=== PATIENT | female | born 1955 | race Caucasian/White ===

== ENCOUNTER 2019-11-28 21:52 | Inpatient (IN) | payer OTHER, SELFPAY ==
[2019-11-28 22:22] VITALS: PULSE 79; RESP 16; TEMP 36.2; O2SAT 98; BMI 21.1
--- NOTE | 2019-11-28 22:27 | DI.CT.S_ITS ---
PROCEDURE: CT HEAD/BRAIN WO CON INDICATIONS: Severe headaches, dizziness and altered mental status TECHNIQUE: Noncontrast 4.5 mm thick angled axial sections acquired from the foramen magnum to the vertex, with coronal and sagittal reformats. For radiation dose reduction, the following was used: automated exposure control, adjustment of mA and/or kV according to patient size. COMPARISON: None. FINDINGS: Image quality: Excellent. CSF spaces: Basal cisterns are patent. No extra-axial fluid collections. The ventricles are symmetric in size and shape. Brain: There are multiple intracranial masses bilaterally concerning for metastatic disease. The largest masses in the right central brain measuring 2.5 x 3.2 cm. A 1.6 and meter mass is seen in the right frontal lobe. There are a couple of masses in the left frontal lobe and a mass in the left parietal lobe. In addition, there is a mass in the left cerebellum. Hypertense appearance of the masses may represent intratumoral calcification or bleed. There is associated vasogenic edema with mass effect and no midline shift. There is cerebral volume loss for age, with resultant ventricular and sulcal prominence. There are periventricular and deep white matter chronic small vessel ischemic changes. There is intracranial internal carotid artery atherosclerosis. Skull and face: Calvarium and visualized facial bones appear intact, without suspicious lesions. Sinuses: Visualized sinuses and mastoids are clear. IMPRESSION: Multiple intracranial masses are present emonstrating associated vasogenic edema involving both cerebral hemispheres as well as the left cerebellum, highly suspicious for intracranial metastases. There is mass effect but no midline shift. No significant discrepancy with the fast food shift lead radiology preliminary report. Dictated by: Gerda Wiley M.D. on 11/29/2019 at 7:57 Approved by: Gerda Wiley M.D. on 11/29/2019 at 8:06
--- NOTE | 2019-11-28 22:27 | DI.RAD.S_ITS ---
PROCEDURE: XR CHEST 1V INDICATIONS: altered mental status TECHNIQUE: One view of the chest was acquired. COMPARISON: None. FINDINGS: Surgical changes and devices: None. Lungs and pleura: There is hyperinflation of the lungs are mild flattening of the hemidiaphragms suggestive of COPD. No focal consolidation. There is mild interstitial prominence. No pleural effusions or pneumothorax. Mediastinum: Mediastinal contours appear normal. Heart size is normal. Bones and chest wall: No suspicious bony lesions. Overlying soft tissues appear unremarkable. IMPRESSION: 1. Findings suggestive of COPD. 2. Mild interstitial prominence which may reflect mild interstitial edema or chronic changes. No acute consolidation. Dictated by: Lester Cook M.D. on 11/29/2019 at 9:24 Approved by: Lester Cook M.D. on 11/29/2019 at 9:26
--- NOTE | 2019-11-28 22:38 | DI.CT.S_ITS ---
PROCEDURE: CT CERVICAL SPINE WO CON INDICATIONS: Headache. Neck pain. Left hand weakness. TECHNIQUE: Noncontrast 3 mm thick sections acquired from the skull base to the T4 level. Sagittal and coronal reformats were then constructed. For radiation dose reduction, the following was used: automated exposure control, adjustment of mA and/or kV according to patient size. COMPARISON: [facility], US, US BIOPSY BREAST 1ST LESION RIGHT, 07/13/2018, 13:57. [facility], CR, XR CHEST 1V, 11/28/2019, 22:38. [facility], CT, CT HEAD/BRAIN WO CON, 11/28/2019, 22:45. FINDINGS: Image quality: Excellent. Bones: No fractures or dislocations. Visualized superior ribs are intact. Prosthetic disc is noted at C3-4 with trace anterolisthesis of C3 on C4, C4 ency eyes. Moderate disc space narrowing is present C5-6 and C6-7. Soft tissues: Thyroid gland demonstrates low-attenuation prominence particularly within the left lobe. Prevertebral soft tissues are normal in thickness. No paravertebral hematomas. No apical pneumothoraces. Bilateral scattered pulmonary nodules are present within the visualized upper lobes bilaterally. The largest is identified in the right apex measuring 8 mm. In addition, there is an ill-defined partially visualized mass within the left cerebellum. IMPRESSION: 1. No visualized fracture. 2. Multiple pulmonary nodules identified within the lung apices. In addition, partially visualized left cerebellar mass is present. Constellation of findings are highly concerning for neoplasm, given recent pathology report of adenocarcinoma of the right breast mass. It is noted MR brain is currently scheduled. CT chest and further imaging evaluation is recommended. 3. Low-attenuation thyroid lobe focus as above. This could represent adenoma or cyst. However, other etiologies cannot be excluded. Thyroid ultrasound is recommended for further evaluation. Dictated by: Caryn Morton M.D. on 11/29/2019 at 8:33 Approved by: Caryn Morton M.D. on 11/29/2019 at 8:38
--- NOTE | 2019-11-28 22:39 | ED_ITS ---
HPI - Neuro Symptoms/Deficit General Chief Complaint: Neuro Symptoms/Deficit Stated Complaint: migraines, vomiting, neuro symptoms Time Seen by Provider: 11/28/19 22:37 Source: patient Mode of arrival: Family Vehicle Limitations: no limitations History of Present Illness HPI Narrative: The patient has been experiencing global headaches for about 4 weeks. She has no prior history of migraines. She has had no URI symptoms, fever, chills or other evidence of illness. With the headache she has been vomiting almost daily. She is apparently having issues with focusing/orientation. She is somewhat a bit when she is walking according to her friends. The patient is oriented, she is a reasonably good historian. She also describes intermittent issues with motion left hand, particularly function of the thumb and index finger. She has a prior history of breast cancer with bilateral mastectomy and chemotherapy approximately 1.5 year ago. Lymph nodes were negative, there was no radiation. She also has a prior history of C-spine surgery. She has no lower extremity numbness or weakness. She has no inconti nence. On Anticoagulants: No Related Data Home Medications Medication Instructions Recorded Confirmed ibuprofen 800 mg PO Q6H PRN 11/29/19 11/29/19 zolpidem [Ambien] mg PO BEDTIME PRN 11/29/19 Allergies Allergy/AdvReac Type Severity Reaction Status Date / Time No Known Drug Allergies Allergy Verified 11/28/19 22:29 Review of Systems Constitutional Constitutional: Reports as per HPI, Denies fatigue, Denies fever(s), Reports headache(s) and Denies poor appetite Eyes Eyes: Denies change in vision Comments: Complains of scotoma ENT Ears, Nose, Mouth, and Throat: Reports headache(s) Comments: No ENT complaints. Cardiovascular Cardiovascular: Denies chest pain, Denies irregular heart rhythm, Denies li ghtheadedness, Denies palpitations, Denies dyspnea and Denies orthopnea Respiratory Respiratory: Denies cough, Denies dyspnea and Denies wheezing Gastrointestinal Gastrointestinal: Denies abdominal pain, Denies diarrhea and Denies nausea Genitourinary Comments: No incontinence Musculoskeletal Musculoskeletal: Denies back pain, Denies numbness and Denies tingling Integumentary/Breasts Skin/Breast: Denies pruritus, Denies erythema, Denies rash and Denies wounds Neurologic Neurologic: Reports headache(s), Denies numbness and Denies tingling Endocrine Endocrine: Denies fatigue and Denies palpitations Allergic/Immunologic Allergic/Immunologic: Denies wheezing Patient History Medical History (Updated 11/29/19 @ 02:16 by Yousuf Garcia MD) Breast cancer (Acute) Surgical History (Updated 11/28/19 @ 22:42 by Yousuf Garcia MD) H/O bilateral mastectomy (Acute) H/O cervical spine surgery (Acute) Social History Smoking Status: Never smoker Smoking Status: Never smoker alcohol intake frequency: holidays/special occasions only Substance Use Type: does not use Exam Initial Vital Signs Initial Vital Signs: Vital Signs Temperature 97.2 F L 11/28/19 22:22 Pulse Rate 79 11/28/19 22:22 Respiratory Rate 16 11/28/19 22:22 Pulse Oximetry 98 11/28/19 22:22 Const General: cooperative, healthy appearing and well developed Nutritional Appearance: well nourished HENMT Head: normocephalic and atraumatic Ears: external ears normal and TM's normal bilaterally Nose: external nose normal Face and sinus: sinuses nontender and face symmetric Mouth: oral mucosae normal and moist mucous membranes Teeth and gingiva: dentition normal Throat: tonsils normal and uvula midline Eyes General: appearance normal, both eyes and all related structures Eyelids: eyelids normal Conjunctivae: conjunctivae normal Sclera: sclerae normal Pupils: PERRL EOM: EOM intact bilaterally Neck Neck: normal visual inspection, trachea midline and No JVD Other: C-spine tenderness without deformity. Chest Chest: normal inspection of the chest Resp Effort & Inspection: normal respiratory effort and able to speak in complete sentences Auscultation: clear to auscultation bilaterally, no rales, no rhonchi and no wheezes Cardio Rate: regular rate Rhythm: regular rhythm Heart Sounds: S1 normal, S2 normal, no click, no gallops, no murmurs and no rubs Pulses: normal peripheral pulses GI Inspection: non-distended Palpation: soft, no hepatosplenomegaly and No guarding Auscultation: normal bowel sounds Back/Spine/Pelvis Back: No back tenderness and No CVA tenderness Skin General: no rashes or lesions noted Neuro General: alert, oriented x3, gait normal and no focal motor deficits Speech: speech normal Motor: muscle tone normal throughout Sensory Exam: no sensory deficits noted Coordination: [id number] test normal and [id number] test normal Extrem General: full ROM, no clubbing, cyanosis or edema, no pedal edema and no calf tenderness Psych Appearance: well kempt Mental Status: mental status grossly normal (Oriented x3) Attitude: cooperative Thought Content: normal Judgment: judgment good Course Course Course Narrative: CT of the head reveals multiple scattered brain parenchymal masses, most significantly a 3.8 x 2.8 x 3.2 cm left cerebellar lesion, with mass effect and mild edema. CT of the neck revealed chronic DJD changes, but also pulmonary masslike foci. Chest x-ray did not reveal gross findings. The patient's neurologic symptoms are associated with metastatic cancer. Her oncologist is Dr. Lao, in [place], [place]. I discussed the case night with his partner,Dr Cunha. Severe weather and the lack of local hospital beds prevents the potential for transfer tonight. Dr Cunha gave the guidance of given Decadron 10 mg IV every 6 hours. I discussed the case with Neurosurgery, Dr. Briceño in [place]. He agreed with Decadron. He suggested transfer to [facility] if neurosurgery. Decadron has been started. The case was discussed with the hospitalist, ANTHONY Banda. The intent would be to start on Decadron tonight, and contact Dr. Lao in the morning to involve himself in her care. She will likely need brain radiation therapy. Orders Ordered: ED Orders 11/28/19 22:27 CT head/brain wo con Stat XR chest 1V Stat EKG-12 Lead Stat 11/28/19 22:38 CT cervical spine wo con Stat 11/28/19 22:40 Complete Blood Count AUTO DIFF Stat Comprehensive Metabolic Panel Stat PT [Prothrombin Time INR] Stat 11/28/19 22:52 Urine Drug Screen, Rapid Stat 11/28/19 23:13 Urinalysis and Microscopic Stat Acetaminophen (Tylenol) 650 mg PO Q6HR PRN PRN Reason: Fever/Mild Pain (1-3) Bisacodyl (Dulcolax) 10 mg MT DAILY PRN PRN Reason: Constipation Dexamethasone (Decadron) 10 mg IV Q8H KELVIN Diphenhydramine HCl (Benadryl) 25 mg IV Q6HR PRN PRN Reason: Nausea Docusate Sodium (Colace) 100 mg PO BID PRN PRN Reason: Constipation Heparin Sodium (Porcine) (Heparin) 5,000 unit SUBCUT BID KELVIN Sodium Chloride (Normal Saline 0.9%) 1,000 mls @ 100 mls/hr IV CONT KELVIN Ibuprofen (Advil) 600 mg PO Q6HR PRN PRN Reason: Fever/Mild Pain (1-3) Ketorolac Tromethamine (Toradol) 15 mg IV Q6HR PRN PRN Reason: Pain, Moderate (4-6) Stop: 12/04/19 01:55 Metoclopramide HCl (Reglan) 10 mg IV Q8HR PRN PRN Reason: Nausea And Vomiting Morphine Sulfate (Morphine) 2 mg IV Q4HR PRN PRN Reason: Pain, Moderate (4-6) Naloxone HCl (Narcan) 0.2 mg IV Q2MIN PRN PRN Reason: Opiate Reversal Discontinued Medications Dexamethasone (Decadron) 10 mg IV NOW ONE Stop: 11/29/19 00:53 Last Admin: 11/29/19 01:00 Dose: 10 mg Documented by: JULIO Diphenhydramine HCl (Benadryl) 25 mg IV NOW ONE Stop: 11/28/19 23:48 Last Admin: 11/29/19 00:14 Dose: 25 mg Documented by: JULIO Sodium Chloride (Normal Saline 0.9%) 1,000 mls @ 1,000 mls/hr IV BOLUS ONE Stop: 11/29/19 00:47 Last Infusion: 11/29/19 01:08 Dose: 0 mls/hr Documented by: Admin: 11/28/19 23:54 Dose: 1,000 mls/hr Documented by: JULIO Ketorolac Tromethamine (Toradol) 30 mg IV NOW ONE Stop: 11/28/19 23:49 Last Admin: 11/29/19 00:14 Dose: 30 mg Documented by: JULIO Metoclopramide HCl (Reglan) 10 mg IV NOW ONE Stop: 11/28/19 23:48 Last Admin: 11/29/19 00:13 Dose: 10 mg Documented by: JULIO Vital Signs Vital signs: Vital Signs - 8 hr 11/28/19 22:22 11/29/19 00:00 Temperature 97.2 F L Pulse Rate 79 78 Respiratory Rate 16 17 Blood Pressure [Right Arm] 157/72 H Pulse Oximetry 98 98 MDM - Neuro Symptoms/Deficit Lab Data Result diagrams: 11/28/19 22:40 11/28/19 22:40 Labs: Lab Results 11/28/19 11/28/19 11/28/19 Range/Units 22:40 22:40 22:40 WBC 6.9 (4.5-11.0) X10^3/uL RBC 4.42 (4.0-5.2) X10^6/uL Hgb 13.8 (12.0-16.0) g/dL Hct 39.6 (36-46) % MCV 89.7 (80-100) fL MCH 31.3 (26-34) PG MCHC 34.9 (30-36) % RDW 12.8 (11.6-14.8) % Plt Count 173 (150-400) X10^3/uL Neut % (Auto) 70.7 (50-75) % Lymph % (Auto) 18.6 L (25-40) % [place] % (Auto) 8.0 (3-14) % Eos % (Auto) 2.0 (2-4) % Baso % (Auto) 0.7 (0-2) % Neut # (Auto) 4900 (7968-8234) /uL Lymph # (Auto) 1300 (1296-7776) /uL [place] # (Auto) 600 (0-900) /uL Eos # (Auto) 100 (0-450) /uL Baso # (Auto) 0 (0-100) /uL PT 11.4 (10.1-12.7) SECONDS INR 1.0 (0.9-1.3) Sodium 137 (137-145) mmol/L Potassium 3.6 (3.4-5.1) mmol/L Chloride 102 (98-107) mmol/L Carbon Dioxide 27 (22-32) mmol/L BUN 16 (7-17) mg/dL Creatinine 0.80 (0.52-1.04) mg/dL Estimated GFR > 60.0 (>60) mL/min BUN/Creatinine Ratio 20.0 (6-22) Glucose 107 (80-110) mg/dL Calcium 9.7 (8.4-10.2) mg/dL Total Bilirubin 0.4 (0.2-1.3) mg/dL AST 40 H (14-36) IU/L ALT 24 (<35) IU/L Alkaline Phosphatase 93 (38-126) U/L Total Protein 7.1 (6.3-8.2) g/dL Albumin 4.3 (3.5-5.0) g/dL Globulin 2.8 (1.7-4.1) g/dL Albumin/Globulin Ratio 1.5 (1.0-2.8) Urine Color Urine Appearance Urine pH (4.5-8.0) Ur Specific [place] (1.000-1.035) Urine Protein (Negative) Urine Glucose (UA) (Negative) g/dL Urine Ketones (NEGATIVE) Urine Occult Blood (Negative) Urine Nitrate (Negative) Urine Bilirubin (NEGATIVE) Urine Urobilinogen (0.2) E.U./dL Ur Leukocyte Esterase (NEGATIVE) Urine RBC (0-5/HPF) Urine WBC (0-5/HPF) Ur Squamous Epith Cells (0-5/HPF) Urine Bacteria (None) Ur Culture Indicated? U Opiates 300ng/mL cut (Negative) Ur Oxycodone Screen (Negative) Urine Methadone Screen (Negative) Ur Barbiturates Screen (Negative) U Tricyclic Antidepress (Negative) Ur Phencyclidine Scrn (Negative) Ur Amphetamines Screen (Negative) U Methamphetamines Scrn (Negative) Ur MDMA Scrn (Ecstasy) (Negative) U Benzodiazepines Scrn (Negative) Urine Cocaine Screen (Negative) U Marijuana (THC) Screen (Negative) 11/28/19 11/28/19 Range/Units 22:52 23:13 WBC (4.5-11.0) X10^3/uL RBC (4.0-5.2) X10^6/uL Hgb (12.0-16.0) g/dL Hct (36-46) % MCV (80-100) fL MCH (26-34) PG MCHC (30-36) % RDW (11.6-14.8) % Plt Count (150-400) X10^3/uL Neut % (Auto) (50-75) % Lymph % (Auto) (25-40) % [place] % (Auto) (3-14) % Eos % (Auto) (2-4) % Baso % (Auto) (0-2) % Neut # (Auto) (5738-5320) /uL Lymph # (Auto) (6746-8093) /uL [place] # (Auto) (0-900) /uL Eos # (Auto) (0-450) /uL Baso # (Auto) (0-100) /uL PT (10.1-12.7) SECONDS INR (0.9-1.3) Sodium (137-145) mmol/L Potassium (3.4-5.1) mmol/L Chloride (98-107) mmol/L Carbon Dioxide (22-32) mmol/L BUN (7-17) mg/dL Creatinine (0.52-1.04) mg/dL Estimated GFR (>60) mL/min BUN/Creatinine Ratio (6-22) Glucose (80-110) mg/dL Calcium (8.4-10.2) mg/dL Total Bilirubin (0.2-1.3) mg/dL AST (14-36) IU/L ALT (<35) IU/L Alkaline Phosphatase (38-126) U/L Total Protein (6.3-8.2) g/dL Albumin (3.5-5.0) g/dL Globulin (1.7-4.1) g/dL Albumin/Globulin Ratio (1.0-2.8) Urine Color Yellow Urine Appearance Clear Urine pH 6.0 (4.5-8.0) Ur Specific [place] 1.020 (1.000-1.035) Urine Protein Negative (Negative) Urine Glucose (UA) Negative (Negative) g/dL Urine Ketones Negative (NEGATIVE) Urine Occult Blood Negative (Negative) Urine Nitrate Negative (Negative) Urine Bilirubin Negative (NEGATIVE) Urine Urobilinogen 0.2 (0.2) E.U./dL Ur Leukocyte Esterase Negative (NEGATIVE) Urine RBC 0-1/hpf (0-5/HPF) Urine WBC 0-1/hpf (0-5/HPF) Ur Squamous Epith Cells 0-1 /hpf (0-5/HPF) Urine Bacteria Occasional (0-1) (None) Ur Culture Indicated? Cult not indicated U Opiates 300ng/mL cut Negative (Negative) Ur Oxycodone Screen Negative (Negative) Urine Methadone Screen Negative (Negative) Ur Barbiturates Screen Negative (Negative) U Tricyclic Antidepress Negative (Negative) Ur Phencyclidine Scrn Negative (Negative) Ur Amphetamines Screen Negative (Negative) U Methamphetamines Scrn Negative (Negative) Ur MDMA Scrn (Ecstasy) Negative (Negative) U Benzodiazepines Scrn Negative (Negative) Urine Cocaine Screen Negative (Negative) U Marijuana (THC) Screen Negative (Negative) Imaging Data Chest x-ray: My Impression: No acute findings CT scan - head: Radiologist's Impression: Multiple scattered brain parenchymal lesions, with the dominant lesion in the left cerebellar lobe. There is midline shift and a small amount of edema. Findings are consistent with metastatic disease. CT - cervical spine: Radiologist's Impression: No fracture or dislocation. Chronic DJD changes. Prior surgery at the 3 C3-4 level. Numbness and pulmonary masslike foci consistent with metastatic disease. ECG Data Attestation: I personally reviewed and interpreted this ECG as follows: (Sinus bradycardia rate 54 beats per minute. Voltage criteria consistent with LVH. The reading is likely modified due to her history of mastectomy. No acute findings.) Critical Care Time Critical Care Time Critical Care Time: Yes Total Critical Care Time: 45 Attestation: Critical care, included initial assessment the patient, evaluation of lab, EKG and radiology data and clinical decision making. Time included discussing the clinical findings and clinical needs with the patient. Time included consultation with specialist and the hospitalist. Discharge Plan Departure Patient Disposition: Admitted as Observation Clinical Impression: Breast cancer metastasized to brain Qualifiers: Laterality: unspecified laterality Qualified Code(s): C50.919 - Malignant neoplasm of unspecified site of unspecified female breast Breast cancer metastasized to lung Qualifiers: Laterality: unspecified laterality Qualified Code(s): C50.919 - Malignant neoplasm of unspecified site of unspecified female breast Admit Date/Time: 11/29/19 01:14 Admit Provider: Martin Banda
[2019-11-28 22:55] LABS: Prothrombin Time 11.4 SECONDS (10.1-12.7)
[2019-11-28 22:56] LABS: Add Manual Diff / Slide Review NO; Basophils Absolute Auto 0 /uL (0-100); Basophils Percent Auto 0.7 % (0-2); Eosinophils Absolute Auto 100 /uL (0-450); Hematocrit 39.6 % (36-46); Hemoglobin 13.8 g/dL (12.0-16.0); Lymphocytes Absolute Auto 1300 /uL (1100-4500); Lymphocytes Percent Auto 18.6 % (25-40); Mean Corpuscular HGB Conc 34.9 % (30-36); Mean Corpuscular Hemoglobin 31.3 PG (26-34); Mean Corpuscular Volume 89.7 fL (80-100); Monocytes Absolute Auto 600 /uL (0-900); Neutrophils Absolute Auto 4900 /uL (1500-7000); Neutrophils Percent Auto 70.7 % (50-75); Platelet Count 173 X10^3/uL (150-400); Red Blood Cell Count 4.42 X10^6/uL (4.0-5.2); Red Cell Distribution Width 12.8 % (11.6-14.8); White Blood Cell Count 6.9 X10^3/uL (4.5-11.0)
[2019-11-28 22:59] LABS: Alanine Aminotransferase 24 IU/L (<35); Albumin 4.3 g/dL (3.5-5.0); Albumin Globulin Ratio 1.5 (1.0-2.8); Alkaline Phosphatase 93 U/L (38-126); Aspartate Aminotransferase 40 IU/L (14-36); Bilirubin Total 0.4 mg/dL (0.2-1.3); Blood Urea Nitrogen 16 mg/dL (7-17); Calcium 9.7 mg/dL (8.4-10.2); Carbon Dioxide 27 mmol/L (22-32); Chloride 102 mmol/L (98-107); Estimated Glomerular Filt Rate > 60.0 mL/min (>60); Globulin 2.8 g/dL (1.7-4.1); Glucose 107 mg/dL (80-110); HEMOLYSIS < 15 (0-50); Potassium 3.6 mmol/L (3.4-5.1); Sodium 137 mmol/L (137-145); Total Protein 7.1 g/dL (6.3-8.2)
[2019-11-28 23:00] LABS: UR Morphine/Opiate cutoff 300 Negative (Negative); Ur Creatinine Normal (Normal); Ur Specific Gravity Normal (Normal); Urine Amphetamines Negative (Negative); Urine Barbiturates Negative (Negative); Urine Benzodiazepines Negative (Negative); Urine Cocaine Negative (Negative); Urine MDMA Negative (Negative); Urine Methadone Negative (Negative); Urine Methamphetamines Negative (Negative); Urine Oxycodone Negative (Negative); Urine Phencyclidine Negative (Negative); Urine Tetrahydrocannabinol Negative (Negative); Urine Tricyclic Antidepressant Negative (Negative); Urine pH Normal (Normal)
[2019-11-28 23:16] LABS: Appearance Urine UA CLEAR; Bilirubin Urine UA NEGATIVE (NEGATIVE); Color Urine UA YELLOW; Glucose Urine UA NEGATIVE (Negative); Ketones Urine UA NEGATIVE (NEGATIVE); Leukocyte Esterase Urine UA NEGATIVE (NEGATIVE); Nitrite Urine UA NEGATIVE (Negative); Occult Blood Urine UA NEGATIVE (Negative); Protein Urine UA NEGATIVE (Negative); Urobilinogen Urine UA 0.2 E.U./dL (0.2)
[2019-11-28 23:20] LABS: Bacteria Urine Occasional (0-1); Culture Indicated Urine Cult Not Indicated; RBC Urine 0-1/HPF (0-5/HPF); Squamous Epithelial Cell Urine 0-1 /HPF (0-5/HPF); WBC Urine 0-1/HPF (0-5/HPF)
[2019-11-28] MEDS: SODIUM CHLORIDE 0.9% 1,000 ML 1000 ML IV (23:54)
[2019-11-29] VITALS (7 sets, daily range): BP systolic 132–162; BP diastolic 69–80; PULSE 50–78; RESP 12–18; TEMP 36.6–37.1; O2SAT 96–99; BMI 21.2
[2019-11-29] MEDS: METOCLOPRAMIDE 10 MG/2 ML INJ IV ×2 (00:13→13:49)
[2019-11-29] MEDS: diphenhydrAMINE 50 MG/ML VIAL 25 MG IV (00:14)
[2019-11-29] MEDS: KETOROLAC 60 MG/2 ML VIAL 30 MG IV (00:14)
[2019-11-29] MEDS: DEXAMETHASONE 10 MG/ML VIAL IV ×3 (01:00→16:26)
--- NOTE | 2019-11-29 01:04 | PC.NURSE ---
Drinking roberto carlos marck and eating a sandwich, ok per dr. fuentes
--- NOTE | 2019-11-29 02:02 | DI.MRI.S_ITS ---
PROCEDURE: MR HEAD/BRAIN WO/W CON INDICATIONS: Breast cancer, multiple brain lesions on CT TECHNIQUE: Noncontrast axial T1 spin echo, axial T2 fast spin echo, sagittal and axial FLAIR, coronal T2 fast spin echo, axial gradient echo, axial diffusion and ADC through the brain. After the administration of contrast, axial and coronal 3D VIBE or T1 spin echo with fat saturation through the brain. COMPARISON: [facility], CT, CT HEAD/BRAIN WO CON, 11/28/2019, 22:45. FINDINGS: Image quality: Excellent. CSF Spaces: Basal cisterns are patent. No extra-axial fluid collections. There is compression of the fourth ventricle as described below. Brain: Bilateral enhancing masses with extensive T2/FLAIR hyperintensity are identified within both cerebral and cerebellar hemispheres. There are approximately 10-12 lesions. The largest in the cerebellum is noted in the posterior left side measuring 41 mm AP by 35 mm transverse by 30 mm craniocaudal. There is mass effect upon the fourth ventricle, as well as effacement of the basal cisterns secondary to more superior cerebellar masses.. The remaining lesions, the largest is identified in the superior right temporal lobe measuring 26 mm AP by 23 mm transverse by 27 mm craniocaudal. There is no visualize superimposed hemorrhage. The brainstem appears normal. Diffusion-weighted images demonstrate no acute ischemic insults. No chronic ischemic insults. Normal intravascular flow voids are present. Skull and face: Calvarial marrow is normal in signal. Orbits appear normal. Sinuses: Sinuses and mastoids appear clear. IMPRESSION: 1. Multifocal enhancing masses within both the cerebellar and cerebral hemispheres as described above most concerning for metastatic disease. 2. As noted above, there is mass effect on the fourth ventricle as well as mild effacement of the basal cisterns secondary to vasogenic edema of superior cerebellar lesions. Dictated by: Caryn Morton M.D. on 11/29/2019 at 12:27 Approved by: Caryn Morton M.D. on 11/29/2019 at 12:35
[2019-11-29] MEDS: SODIUM CHLORIDE 0.9% 1,000 ML 100 ML IV (02:22)
--- NOTE | 2019-11-29 02:25 | PC.ADMIT ---
Addendum entered by Karen Lund R.N. 11/29/19 06:28: Patient awoke at 0620 disgruntled and called staff to her room. Requesting food and water - reminded she is NPO. Irritable, asking to leave. I'm not a prisoner here right? You can't force me to stay. Discussed options including AMA which has been advised against based on her diagnosis. She verbalized understanding and states well, I have concerns. Can I talk to Javed?. ANTHONY Maurice at bedside to discuss care. Patient stable without acute events since admission. Original Note: [email or web address] Admission Note: The patient,Maranda Bee,64 y/o, was given written information regarding hospital policies, unit procedures and contact persons. Patient's smoking status: Never smoker. Vital Signs - 8 hr 11/28/19 22:22 11/29/19 00:00 11/29/19 01:40 Temperature 97.2 F L 98.3 F Pulse Rate 79 78 64 Respiratory Rate 16 17 12 Blood Pressure 162/79 H Blood Pressure [Right Arm] 157/72 H Pulse Oximetry 98 98 99 11/29/19 01:50 Temperature 98.3 F Pulse Rate 60 Respiratory Rate 16 Blood Pressure 162/79 H Blood Pressure [Right Arm] Pulse Oximetry 99 Patient arrived from ED via stretcher. Able to ambulate to bed with 1 person assistance d/t disequilibrium, somewhat unsteady on her feet. Placed in high fall risk gear and educated on such. A/O X 3 with reported intermittent confusion, migraines, slurred speech and focal seizures to left hand. Patient admitted for new diagnosed metastatic breast cancer to lungs and brain with shift. Denies current pain, migraine improved after medication in ED. VSS, afebrile. Sp02 99% RA. Tele SB-SR 50's-60's. Skin intact as much as was visualized - she became quite agitated and irritable with the skin check and would not let staff look at her mastectomy scars nor her legs or buttocks. Denies wounds. Scattered bruising noted. She reports I am very private and at this point it is not necessary to expose myself to you when I am dying anyway. Reassurance offered, comfort provided. Mood labile, reports this is a lot to take in. Friend and emergency contact Antoinette reports patient's baseline of irritability and stubbornness is not new. Oriented to room, call light and plan of care. Verbalized understanding. Javed CRUZ at bedside upon arrival.
--- NOTE | 2019-11-29 02:30 | P.HP_ITS ---
History of Present Illness History of Present Illness Date Patient Seen: 11/29/19 Time Patient Seen: 01:30 Chief complaint: migraines, vomiting, neuro symptoms Narrative: Ms. Maranda Bee is a 64-year-old female patient with history significant for breast cancer status post bilateral mastectomy and chemotherapy 1 year ago who presents to the ER with intractable headache with nausea and vomiting. The patient is a somewhat difficult historian related to irritability an self describe difficulty concentrating. Patient reports having had persistent headache for 4 weeks and developing a disequilibrium and ataxia. More recently the patient developed nausea vomiting endorses taking ibuprofen 800 mg for headache but denies epigastric discomfort, coffee-ground emesis, hematemesis or melena. Patient also reports experiencing twitching of her left thumb as well as her left hand clenching in a fist which could not open up on multiple occasions. Within the last week she had jerking motions of her left arm. All episodes were self terminating but the patient cannot recall the duration of the events. The patient has no history of migraines for history of seizures. Her only medication she takes presently is zolpidem and ibuprofen as noted. The patient's headache is located left occipital and she has a history previous cervical spine surgery but describes this is new and different. She presently rates her headache is 5/10 aching pain. Patient reports no fevers or chills, no complaints of nasal congestion or sore throat. She has had no chest pain or palpitations, shortness of breath, cough or wheezing. She denies abdominal pain present continues nausea with multiple episodes of vomiting daily. She reports no changes in bowel habits, no hematochezia. She denies urinary frequency urgency or burning. She does provide a history of having r ight leg sciatica. Upon arrival to the ER the patient is afebrile with temperature 97.2?, heart r ate of 79, blood pressure of 157/72, respirations 16 saturating 98% on room air. Chest is trees obtained which shows no acute cardiopulmonary disease. A CT of the neck finds reversal of expected lordosis, mild to moderate degenerative disc and facet disease, mild multilevel spinal canal stenosis secondary to dorsal disc osteophyte bulging and a C3-4 disc prosthesis. Numerous intrapulmonary masslike focus of airspace disease worrisome for metastatic neoplasia, thyroid nodularity. CT of the head is obtained which shows multiple scattered intraparenchymal brain masses the single largest lesion in the left cerebellar lobe measuring 3.8 x 2.8 by 3.2 associated with regional mass effect secondary to perilesional edema, mild posterior fossa midline [id number] shift. On laboratory analysis the patient has white count of 6.9, hemoglobin of 13.8, hematocrit of 39.6 and platelets of 173. Her electrolytes are within normal limits with a BUN of 16 creatinine 0.8. Her nonfasting glucose is 107. Her total bilirubin is 0.4, AST is 40, ALT of 24 and alkaline phosphatase 93. She has a PT of 11.4 and INR 1.0. Her urinalysis is negative for infection. ER provider spoke with Dr. Lao, oncology as well as Dr. Briceño neurology regarding the patient's case. Recommendations received Decadron 10 mg IV every 4 hours. Due to inclement weather we're unable to transfer the patient to higher level of care therefore is being admitted to medicine service for metastatic breast cancer and focal seizure activity. Patient History Medical History Breast cancer (Acute) Surgical History H/O bilateral mastectomy (Acute) H/O cervical spine surgery (Acute) Family & Social History Family History Father No significant medical problems Mother Cancer Social History: Prior Living Arrangements House Safety & Behavioral: Feels Safe in Current Yes Environment Been Physically Hurt or No Threatened By a Person Suicidal Ideation Description None Suicide Plan Description No Plan Tobacco & Substance use: Smoking Status Never smoker alcohol intake frequency holiday/special occasion Substance Use Type does not use Comment: The patient lives alone in a single family home on [facility]. She reports father is 91 and in relatively good health and her mother is 87 has history of breast cancer. Smoking: The patient denies using tobacco products. Alcohol: Patient consumes alcohol occasionally. Substance use: The patient denies recreational pharmaceuticals herbal or cannabis products. Advanced directives: The patient states she does not have an advanced direct kendy. In direct discussion with the patient she states her wish to be DO NOT RESUSCITATE, DO NOT INTUBATE. She designates her friend Antoinette to be her surrogate decision maker. Meds Home Medications and Allergies Home Medications Medication Instructions Recorded Confirmed Type ibuprofen 800 mg PO Q6H PRN 11/29/19 11/29/19 History zolpidem [Ambien] mg PO BEDTIME PRN 11/29/19 History Allergies Allergy/AdvReac Type Severity Reaction Status Date / Time No Known Drug Allergies Allergy Verified 11/28/19 22:29 Review of Systems Review of Systems Narrative: All systems reviewed and found unremarkable under discussed in the HPI above. Exam Vital Signs (past 8 hours): - 11/28/19 22:22 11/29/19 00:00 11/29/19 01:40 Temperature 97.2 F L 98.3 F Pulse Rate 79 78 64 Respiratory Rate 16 17 12 Blood Pressure 162/79 H Blood Pressure [Right Arm] 157/72 H Pulse Oximetry 98 98 99 11/29/19 01:50 Temperature 98.3 F Pulse Rate 60 Respiratory Rate 16 Blood Pressure 162/79 H Blood Pressure [Right Arm] Pulse Oximetry 99 Oxygen Delivery Method Room Air Narrative Exam Narrative: GENERAL APPEARANCE: well developed, slender woman who is uncomfortable appearing but in no acute distress. HEENT: Symmetrical facies, no ptosis, PERRLA, conjunctiva clear, EOMs intact without nystagmus, no sinus tenderness to percussion, no rhinorrhea, mucous membranes are moist and pink without lesions or exudate. NECK/THYROID: neck supple, no JVD, trachea midline. LYMPH NODES: no cervical or supraclavicular lymphadenopathy. SKIN: Guadalupe Guerra, warm and dry, ecchymosis right forearm. HEART: regular rate and rhythm, S1-S2, no murmur, no rubs or gallops, brisk capillary refill, no edema LUNGS: clear to auscultation bilaterally, no coarseness crackles or wheezing, no cough present CHEST: Symmetrical movement, no accessory muscle use, good tidal volume. ABDOMEN: Soft, no distention, no abdominal tenderness, no guarding or peritoneal signs, no organomegaly, no flank tenderness, active bowel tones. 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 NEUROLOGIC: AAO x4, no facial droop or ptosis, very slight slurring of speech without aphasia, no arm or leg drift, remainder of cranial nerves are grossly intact, sensation intact to light touch, hearing grossly normal to speech. PSYCH: Patient is irritable, marginally cooperative, behaviors stable. Objective Labs Result Diagrams: 11/28/19 22:40 11/28/19 22:40 Labs: Laboratory Results - last 24 hr 11/28/19 11/28/19 11/28/19 22:40 22:40 22:40 WBC 6.9 RBC 4.42 Hgb 13.8 Hct 39.6 MCV 89.7 MCH 31.3 MCHC 34.9 RDW 12.8 Plt Count 173 Neut % (Auto) 70.7 Lymph % (Auto) 18.6 L Door % (Auto) 8.0 Eos % (Auto) 2.0 Baso % (Auto) 0.7 Neut # (Auto) 4900 Lymph # (Auto) 1300 Door # (Auto) 600 Eos # (Auto) 100 Baso # (Auto) 0 PT 11.4 INR 1.0 Sodium 137 Potassium 3.6 Chloride 102 Carbon Dioxide 27 BUN 16 Creatinine 0.80 Estimated GFR > 60.0 BUN/Creatinine Ratio 20.0 Glucose 107 Calcium 9.7 Total Bilirubin 0.4 AST 40 H ALT 24 Alkaline Phosphatase 93 Total Protein 7.1 Albumin 4.3 Globulin 2.8 Albumin/Globulin Ratio 1.5 Urine Color Urine Appearance Urine pH Ur Specific [place] Urine Protein Urine Glucose (UA) Urine Ketones Urine Occult Blood Urine Nitrate Urine Bilirubin Urine Urobilinogen Ur Leukocyte Esterase Urine RBC Urine WBC Ur Squamous Epith Cells Urine Bacteria Ur Culture Indicated? U Opiates 300ng/mL cut Ur Oxycodone Screen Urine Methadone Screen Ur Barbiturates Screen U Tricyclic Antidepress Ur Phencyclidine Scrn Ur Amphetamines Screen U Methamphetamines Scrn Ur MDMA Scrn (Ecstasy) U Benzodiazepines Scrn Urine Cocaine Screen U Marijuana (THC) Screen 11/28/19 11/28/19 22:52 23:13 WBC RBC Hgb Hct MCV MCH MCHC RDW Plt Count Neut % (Auto) Lymph % (Auto) Door % (Auto) Eos % (Auto) Baso % (Auto) Neut # (Auto) Lymph # (Auto) Door # (Auto) Eos # (Auto) Baso # (Auto) PT INR Sodium Potassium Chloride Carbon Dioxide BUN Creatinine Estimated GFR BUN/Creatinine Ratio Glucose Calcium Total Bilirubin AST ALT Alkaline Phosphatase Total Protein Albumin Globulin Albumin/Globulin Ratio Urine Color Yellow Urine Appearance Clear Urine pH 6.0 Ur Specific [place] 1.020 Urine Protein Negative Urine Glucose (UA) Negative Urine Ketones Negative Urine Occult Blood Negative Urine Nitrate Negative Urine Bilirubin Negative Urine Urobilinogen 0.2 Ur Leukocyte Esterase Negative Urine RBC 0-1/hpf Urine WBC 0-1/hpf Ur Squamous Epith Cells 0-1 /hpf Urine Bacteria Occasional (0-1) Ur Culture Indicated? Cult not indicated U Opiates 300ng/mL cut Negative Ur Oxycodone Screen Negative Urine Methadone Screen Negative Ur Barbiturates Screen Negative U Tricyclic Antidepress Negative Ur Phencyclidine Scrn Negative Ur Amphetamines Screen Negative U Methamphetamines Scrn Negative Ur MDMA Scrn (Ecstasy) Negative U Benzodiazepines Scrn Negative Urine Cocaine Screen Negative U Marijuana (THC) Screen Negative Assessment & Plan Assessment & Plan narrative: This is a 64-year-old female patient with a prior history of breast cancer having undergone chemotherapy 1 year ago but not r adiation therapy. Patient reports new onset of headache 4 weeks ago with associated ataxia and developing intractable nausea vomiting. CT scan the head finds multiple intraparenchymal lesions as well as multiple intrapulmonary lesions concerning for neoplasia. 1. Metastatic breast cancer with lesions to brain and lungs, acute, present on admission, active. -the patient was diagnosed with willing to breast cancer and underwent bilateral mastectomy and chemotherapy, per reports lymph node dissection was negative. -the patient completed her course of chemotherapy but did not have radiation th erapy. -patient presents today with intractable headache with development of intractable nausea and vomiting, associated complaints of visual scotoma and ataxia. -CT scan with findings of multiple intraparenchymal lesions, largest of which is is cerebellar lesion 3.8 x 2.8 x 3.2 cm with associated mass effect and perilesional edema, mass effect with midline shift left to right in the posterior fossa. -ordered Decadron 10 mg IV every 8 hours. -MR head and chest with and without contrast. -will follow-up with Dr. Lao, oncology, in the morning regarding treatment options and radiation therapy at [facility]. -patient will be NPO, swallow evaluation in the morning. -IV normal saline 100 cc/hour. 2. Focal motor seizure activity, acute, not present on admission, active. -patient describes 3 weeks a focal motor activity to the left arm with some twitching, clenching fist and arm jerking, unknown duration, all episodes self terminating. -the patient's largest lesion is in the left cerebellum with mass effect and midline shift [id number]. -ordered Decadron 10 mg IV every 8 hours. -seizure precautions. 3. Intractable nausea and vomiting, acute, present on admission, active. -patient presented to the ER because she cannot go through another day a protr acted nausea vomiting. No coffee-ground or hematemesis. -bleed be secondary to increased intracranial pressure, anticipating improvement with Decadron treatment. -patient received metoclopramide 10 mg and Benadryl 25 mg the ER with relief of nausea. -will continue metoclopramide 10 mg IV every 6 hours as needed. -will continue Benadryl 25 mg every 6 hours as needed. -patient is NPO, normal saline 100 cc/hour. 4. Sciatica right leg, chronic, stable. -patient has undergone MRI for evaluation of right leg sciatica. Findings are none available for review at this time. -patient is receiving Decadron for her brain lesions which will likely benefit her sciatica pain. -no further treatment at this time. VTE prophylaxis: SCDs, heparin. Diet: NPO until swallow eval. IVF: normal saline 100 cc/hour The patient is admitted to the hospital related to severity of her symptoms and risks of adverse events and complications including seizures including respiratory distress. The patient is admitted as an inpatient with expected length of stay to be greater than 2 midnights with likely transfer to tertiary care facility when whether and transport permits.
[2019-11-29] MEDS: ONDANSETRON 4 MG/2 ML INJ IV (03:04)
[2019-11-29 05:18] LABS: Blood Urea Nitrogen 14 mg/dL (7-17); Calcium 8.8 mg/dL (8.4-10.2); Carbon Dioxide 27 mmol/L (22-32); Chloride 108 mmol/L (98-107); Estimated Glomerular Filt Rate > 60.0 mL/min (>60); Glucose 123 mg/dL (80-110); HEMOLYSIS < 15 (0-50); Potassium 3.6 mmol/L (3.4-5.1); Sodium 141 mmol/L (137-145)
[2019-11-29 05:25] LABS: Add Manual Diff / Slide Review NO; Basophils Absolute Auto 0 /uL (0-100); Basophils Percent Auto 0.1 % (0-2); Eosinophils Absolute Auto 0 /uL (0-450); Eosinophils Percent Auto 0.1 % (2-4); Hematocrit 37.2 % (36-46); Hemoglobin 12.9 g/dL (12.0-16.0); Lymphocytes Absolute Auto 400 /uL (1100-4500); Lymphocytes Percent Auto 5.1 % (25-40); Mean Corpuscular HGB Conc 34.6 % (30-36); Mean Corpuscular Hemoglobin 31.4 PG (26-34); Mean Corpuscular Volume 90.7 fL (80-100); Monocytes Absolute Auto 100 /uL (0-900); Monocytes Percent Auto 0.9 % (3-14); Neutrophils Absolute Auto 7700 /uL (1500-7000); Neutrophils Percent Auto 93.8 % (50-75); Platelet Count 158 X10^3/uL (150-400); Red Cell Distribution Width 12.7 % (11.6-14.8); White Blood Cell Count 8.2 X10^3/uL (4.5-11.0)
[2019-11-29] MEDS: KETOROLAC 15 MG/ML VIAL IV ×2 (06:43→13:49)
--- NOTE | 2019-11-29 10:25 | OT.IP.TRT ---
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 Chart reviewed and case discussed with [employer] LOCATOR who states pt will be transferred to another facility with higher level of care for metastatic breast cancer. Pt has lung and brain mets with focal LUE seizures. Will defer OT eval to next facility.
--- NOTE | 2019-11-29 10:46 | ST.IPIE ---
Visit Care Team Role Provider Type Jesus Cotton MD Family Provider Non-Staff Primary Care Provider Specialty: Family Practice Address: 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) Past Medical History (Last Reviewed 11/29/19 @ 02:49 by ANTHONY Copeland) Breast cancer (Acute Medical) ST IP Initial Evaulation Report REFERENCE AND INSTRUCTION LIBRARIAN Clinical Swallow Evaluation Start: 11/29/19 10:31 Freq: Status: Active Protocol: Document 11/29/19 10:31 MAURI (Rec: 11/29/19 10:46 MAURI [id number]) Clinical Swallow Evaluation Session Time Visit Start Time 09:10 Visit Stop Time 09:50 Total Visit Minutes 40 Referral Referring Physician ANTHONY Copeland Reason for Referral Swallow Evaluation Setting Assessment Location Acute Care Visit Type Note Type Initial Evaluation Patient Information Identification Type Name,ID Card History Per H&P: This is a 64-year- old female patient with a prior history of breast cancer having undergone chemotherapy 1 year ago but not radiation therapy. Patient reports new onset of headache 4 weeks ago with associated ataxia and developing intractable nausea vomiting. CT scan the head finds multiple intraparenchymal lesions as well as multiple intrapulmonary lesions concerning for neoplasia. Subjective Observations Pt was awake and sitting up in her bed. She denied swallow difficulties but did endorse occasional slurred speech and difficulty formulating language to express herself, which she attributed as an effect of chemotherapy. Evaluation Liquids Trialed Thin Solids Trialed Puree,Mechanical Soft,Regular Administration Type Cup Single Sip,Cup Consecutive Sips,Straw,Self-Feeding Oral Impairment WNL Oral Strategies Upright at 90 degrees Oral Phase Comments Oral Peripheral Exam: Reduced left side buccal and lingual tone was apparent upon lingual retraction, giving appearance of facial droop. All other structures were symmetrical and WNL of strength, coordination, and ROM. The pt has natural dentition in good condition. Oral Phase: WNL. No evidence of oral dysphagia present. Pharyngeal Impairment WNL Pharyngeal Strategies Sitting Upright (90 deg),Small Bites and Sips Pharyngeal Phase Comments Coughing x1 was observed with consecutive sips of water via thin straw. The pt stated that she does not typically drink from a straw. Given a hospital water bottle with wider straw, the pt safely tolerated single and consecutive sips without overt s/sx of aspiration. No s/sx of aspiration were observed with all other trials of applesauce, diced fruit, dry turkey sandwich, and dry edi cracker. Findings Dysphagia Type Swallow Function WNL Impressions The pt presents with swallow function WNL. She was educated on general aspiration risks and precautions and verbalized agreement. Speech/Language: Productions of /s/ were observed to be mildly imprecise, but speech was 100% intelligible, and expressive and receptive language skills were appropriate. The pt was encouraged to seek REFERENCE AND INSTRUCTION LIBRARIAN intervention if problems in these areas interfered with her ability to effectively communicate or perform ADLs. She verbalized understanding. The pt will be discharged from REFERENCE AND INSTRUCTION LIBRARIAN services. Diet Recommendations Liquids Order Thin Diet Order Regular Medication Recommendations As Tolerated Aspiration Precautions Recommended Precautions Upright at 90 Degrees,Small Bites/Sips Treatment Plan Placement Recommendations after Home Discharge Appropriate for Therapy No
--- NOTE | 2019-11-29 11:09 | PT-IP ANOTE ---
Attempted to see pt this morning at 10:[address] Winston was discussing d/c planning with pt. He stated pt agreed to be transfers to higher level of care at [facility] versus [facility] d/t metastatic breast cancer and focal seizure activity. Pt will most likely be transferred today depends on weather. Defer PT at this PT for facility with higher level of care.
--- NOTE | 2019-11-29 11:38 | CM.DANOTE ---
DCP Brief Assessment Note: Patient is a 64 year old female who was admitted on 11/29/19 for migraines and neuro symptoms. Pt has [employer] for insurance and her PCP is Dr. Jesus Cotton. EMR was reviewed. Per MD, pt with hx of breast cancer with double mastectomy with Oncologist at baseline and arrives with new multiple brain mets with lesions. Pt should have been transferred to higher level of care but due to inclement weather/snow transport was not available. Per RN, pt has been adjusting to her new dx with some statements of not wanting to transfer or receive treatment and wanting to just leave and go home. Pt has supportive friend bedside. Pt lives on [facility] [address] [facility] alone and has elderly parents nearby (91 and 87 yo, but in fairly good medical condition) and local supportive friends. MD met bedside with pt and explained pt's status and reasons for recommendation of hospital transfer and pt now agreeable to transfer and MD will begin working to find accepting physician and facility. Pt not feeling ready for further bedside discussions at this time and SW available if needed or supportive services identified. Plan: SW to follow closely for any further needs expressed by pt and to confirm accepting facility found for hospital transfer for higher level of care needs. LEE Silverman
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
--- NOTE | 2019-11-29 15:22 | PC.NURSE ---
Am shift Pt is a/o x4, up ambulating in unit. Pt is steady on her feet, Tele in place NSR. Pt is transfering to [facility] pending biopsy to [facility] to brain. NO further concerns this shift. Pt is talkative and up throughout shift.
--- NOTE | 2019-11-29 17:19 | PC.NURSE ---
1630 - Pt up ambulating around the unit. Dressed in own clothing. Denies lightheadedness. Reports dizziness only when bending over. Educated to safety and fall precautions. RX given iv per order. IV saline locked. Removed equipment monitor phototypesetting. Assist pt in collecting belongings. Report given to transport team. Report faxed to [facility] per transfer center request. 1700 - Pt discharged via [place] ambulance to [facility] ER.
== END 2019-11-29 17:00 | disposition short-term general hospital (02) | DRG 54 ==
LOC: ED 22:46 → ICU 11-29 02:16
PROVIDERS: Admitting Provider Nurse Practitioner Adult Health; Emergency Provider Emergency Medicine; Family Provider Family Medicine; PCP Family Medicine; Visit Provider Nurse Practitioner Adult Health
DX: C79.31 Secondary malignant neoplasm of brain (principal); G93.6 Cerebral edema; C78.02 Secondary malignant neoplasm of left lung; C78.01 Secondary malignant neoplasm of right lung; G40.89 Other seizures; R11.2 Nausea with vomiting, unspecified; M54.32 Sciatica, left side; Z85.3 Personal history of malignant neoplasm of breast
CPT/HCPCS: 36415; 70450; 70553; 71045; 72125; 80048; 80053; 80305; 81001; 85025; 85610; 87797; 92610; 93005; 96361; 96374; 96375; 99285; 99291; A9579; J1100; J1200; J1885; J2405; J2765